=== PATIENT | male | born 1990 | race African-American/Black ===

== ENCOUNTER 2017-04-14 15:45 | Emergency (ER) | payer SELFPAY ==
[2017-04-14 17:08] LABS: ADD MAN DIFF? NO
[2017-04-14 17:23] LABS: ANION GAP 6 (6-14); BLOOD UREA NITROGEN 22 mg/dL (8-26); BUN/CREATININE RATIO 24 (6-20); CALCIUM 8.8 mg/dL (8.5-10.1); CARBON DIOXIDE 29 mmol/L (21-32); CHLORIDE 102 mmol/L (98-107); CREATININE 0.9 mg/dL (0.7-1.3); GFR 125.4; GLUCOSE 97 mg/dL (70-99); SODIUM 137 mmol/L (136-145)
[2017-04-14 17:30] LABS: ALBUMIN 3.5 g/dL (3.4-5.0); ALK PHOS 79 U/L (46-116); ALT (SGPT) 63 U/L (16-63); AST (SGOT) 155 U/L (15-37); LIPASE 103 U/L (73-393); TOTAL BILIRUBIN 0.2 mg/dL (0.2-1.0)
[2017-04-14 17:31] LABS: BASO % 1 % (0-3); EOS # 0.1 x10^3/uL (0.0-0.7); EOS % 2 % (0-3); HEMOGLOBIN 13.1 g/dL (13.0-17.5); LYMPH # 1.6 x10^3/uL (1.0-4.8); LYMPH % 26 % (24-48); MEAN CORPUSCULAR HEMOGLOBIN 33 pg (25-35); MEAN CORPUSCULAR HGB CONC 34 g/dL (31-37); MEAN CORPUSCULAR VOLUME 97 fL (79-100); MONO # 0.7 x10^3/uL (0.0-1.1); MONO % 12 % (0-9); NEUT # 3.8 x10^3uL (1.8-7.7); NEUT % 60 % (31-73); PLATELET COUNT 231 x10^3/uL (140-400); RED BLOOD COUNT 4.04 x10^6/uL (4.30-5.70); RED CELL DISTRIBUTION WIDTH 13.5 % (11.5-14.5); WHITE BLOOD COUNT 6.3 x10^3/uL (4.0-11.0)
[2017-04-14 17:48] LABS: INFLUENZA A PATIENT NEGATIVE (NEGATIVE); INFLUENZA B PATIENT NEGATIVE (NEGATIVE); OBC FLU VALID
[2017-04-14] MEDS: FAMOTIDINE 20 MG/2 ML VIAL IVP ×2 (17:50)
[2017-04-14] MEDS: ONDANSETRON PF 4 MG/2 ML VIAL. IV ×2 (17:50)
[2017-04-14] MEDS: IV NORMAL SALINE 1000ML BAG 1,000 ML IV ×2 (17:50)
[2017-04-14 19:50] LABS: BILIRUBIN,URINE NEGATIVE (NEG); CLARITY,URINE CLEAR; COLOR,URINE YELLOW; GLUCOSE,URINE NEGATIVE (NEG); NITRITE,URINE NEGATIVE (NEG); PH,URINE 6.5; PROTEIN,URINE NEGATIVE (NEG-TRACE); UROBILINOGEN,URINE 0.2 mg/dL (0.2 mg/dL)
[2017-04-14 20:02] LABS: BACTERIA,URINE 0 /HPF (0-FEW); RBC,URINE 0 /HPF (0-2); SQUAMOUS EPITHELIAL CELL,UR OCC /LPF; WBC,URINE 0 /HPF (0-4)
== END 2017-04-14 20:23 | disposition home or self-care (01) ==
LOC: ER 15:45
DX: R11.2 Nausea with vomiting, unspecified (principal); R10.13 Epigastric pain; R07.9 Chest pain, unspecified
CPT/HCPCS: 36415; 71045; 80053; 81001; 83690; 85025; 87804; 87804-59; 93005; 96361; 96374; 96375; 99285-25; J2405; J7030; S0028

== ENCOUNTER 2017-08-23 14:11 | Emergency (ER) | payer SELFPAY ==
[2017-08-23] MEDS: IV NORMAL SALINE 1000ML BAG 1,000 ML IV (14:45)
[2017-08-23] MEDS: IOHEXOL 300 MG/ML 100ML VIAL. IV (14:45)
[2017-08-23 14:50] LABS: ADD MAN DIFF? NO
[2017-08-23 14:57] LABS: BASO # 0.1 x10^3/uL (0.0-0.2); BASO % 1 % (0-3); EOS # 0.5 x10^3/uL (0.0-0.7); EOS % 9 % (0-3); HEMATOCRIT 42.4 % (39.0-53.0); HEMOGLOBIN 14.5 g/dL (13.0-17.5); LYMPH # 1.8 x10^3/uL (1.0-4.8); LYMPH % 31 % (24-48); MEAN CORPUSCULAR HEMOGLOBIN 33 pg (25-35); MEAN CORPUSCULAR HGB CONC 34 g/dL (31-37); MEAN CORPUSCULAR VOLUME 96 fL (79-100); MONO # 0.7 x10^3/uL (0.0-1.1); MONO % 13 % (0-9); NEUT # 2.7 x10^3uL (1.8-7.7); NEUT % 46 % (31-73); PLATELET COUNT 180 x10^3/uL (140-400); RED BLOOD COUNT 4.43 x10^6/uL (4.30-5.70); RED CELL DISTRIBUTION WIDTH 13.4 % (11.5-14.5); WHITE BLOOD COUNT 5.8 x10^3/uL (4.0-11.0)
[2017-08-23 15:00] LABS: BASE EXCESS ABG 0 mmol/L (-3-3); HCO3 ABG 23 mmol/L (21-28); PCO2 ABG 32 mmHg (35-46); PH ABG 7.47 (7.35-7.45); PO2 ABG 100 mmHg (85-108); SAT O2 ABG 98 % (92-99)
[2017-08-23] MEDS ORDERED: CONTRAST GIVEN. MC (15:00)
[2017-08-23 15:06] LABS: ANION GAP 11 (6-14); BLOOD UREA NITROGEN 20 mg/dL (8-26); BUN/CREATININE RATIO 18 (6-20); CALCIUM 9.2 mg/dL (8.5-10.1); CARBON DIOXIDE 26 mmol/L (21-32); CHLORIDE 101 mmol/L (98-107); CREATININE 1.1 mg/dL (0.7-1.3); GFR 98.7; GLUCOSE 77 mg/dL (70-99); POTASSIUM 3.6 mmol/L (3.5-5.1); SODIUM 138 mmol/L (136-145)
[2017-08-23 15:12] LABS: ALBUMIN 4.2 g/dL (3.4-5.0); ALBUMIN/GLOBULIN RATIO 1.1 (1.0-1.7); ALK PHOS 75 U/L (46-116); ALT (SGPT) 31 U/L (16-63); AST (SGOT) 28 U/L (15-37); CREATINE KINASE 308 U/L (39-308); TOTAL BILIRUBIN 1.5 mg/dL (0.2-1.0); TOTAL PROTEIN 7.9 g/dL (6.4-8.2)
[2017-08-23 15:13] LABS: ACETAMIN < 2.0 mcg/ml (10-30); ETHANOL < 10 mg/dL (0-10); SALIC 3.1 mg/dL (2.8-20.0)
[2017-08-23 15:42] LABS: BILIRUBIN,URINE MODERATE (NEG); CLARITY,URINE CLEAR; COLOR,URINE AMBER; GLUCOSE,URINE NEGATIVE (NEG); NITRITE,URINE NEGATIVE (NEG); PROTEIN,URINE 100 mg/dL (NEG-TRACE)
[2017-08-23 15:47] LABS: BARBITURATES NEG (NEG); BENZODIAZEPINES NEG (NEG); CANNABINOIDS POS (NEG); COCAINE POS (NEG); METHADONE NEG (NEG); OPIATES NEG (NEG); PHENCYCLIDINE NEG (NEG)
[2017-08-23 15:48] LABS: AMPHETAMINE/METHAMPHETAMINE POS (NEG); ETHANOL, URINE NEG (NEG)
[2017-08-23 15:58] LABS: BACTERIA,URINE 0 /HPF (0-FEW); HYALINE CASTS, URINE FEW /HPF; RBC,URINE 0 /HPF (0-2); SQUAMOUS EPITHELIAL CELL,UR FEW /LPF
== END 2017-08-23 16:13 | disposition home or self-care (01) ==
LOC: ER 14:11
DX: R10.9 Unspecified abdominal pain (principal); F41.9 Anxiety disorder, unspecified; E86.0 Dehydration
CPT/HCPCS: 36415; 36600; 74177; 80053; 80307; 80329; 81001; 82550; 82805; 85025; 87086; 96360; 99285-25; G0480; G6039; J7030; Q9967

== ENCOUNTER 2019-03-19 18:25 | Emergency (ER) | payer SELFPAY ==
[~2019-03-19] VITALS: Ht 167.6 cm; Wt 59.0 kg
[~2019-03-19 18:25] MED LIST: ONDA4TAB10 SL
[2019-03-19] MEDS ORDERED: IV NORMAL SALINE 1000ML BAG 1,000 ML IV SCH (18:39)
--- NOTE | 2019-03-19 18:44 | PHYS DOC ---
Past Medical History Past Medical History: No Pertinent History Past Surgical History: No Surgical History Alcohol Use: None Drug Use: None Adult General Chief Complaint Chief Complaint: NAUSEA/VOMITING/DIARRHA HPI HPI Patient is a 28 year old male who presented to ER today for evaluation of nausea, vomiting, diarrhea, abdominal pain started about 4 hours ago. he denies any fever. Patient said he ate some chicken this morning. he denies any chest pain, no trouble breathing, no suicidal ideation. All other ROS is negative unless otherwise noted in HPI Review of Systems Review of Systems See above Current Medications Current Medications Current Medications Medications (Trade) Dose Ordered Sig/Trista Start Time Stop Time Status Last Admin Dose Admin Ondansetron HCl (Zofran) 4 mg 1X ONCE 03/19/19 18:45 03/19/19 18:46 DC 03/19/19 18:45 4 MG Sodium Chloride 1,000 ml @ 1,000 mls/hr Q1H 03/19/19 18:39 03/19/19 19:38 DC 03/19/19 18:39 1,000 MLS/HR Allergies Allergies Allergies Coded Allergies Type Severity Reaction Last Updated Verified No Known Drug Allergies 04/14/17 No Physical Exam Physical Exam See above Constitutional: Well developed, well nourished, no acute distress, non-toxic appearance. [] HENT: Normocephalic, atraumatic, bilateral external ears normal, oropharynx moist, no oral exudates, nose normal. [] Eyes: PERRLA, EOMI, conjunctiva normal, no discharge. [] Neck: Normal range of motion, no tenderness, supple, no stridor. [] Cardiovascular:Heart rate regular rhythm, no murmur [] Lungs & Thorax: Bilateral breath sounds clear to auscultation [] Abdomen: Bowel sounds normal, soft, no tenderness, no masses, no pulsatile masses. [] Skin: Warm, dry, no erythema, no rash. [] Back: No tenderness, no CVA tenderness. [] Extremities: No tenderness, no cyanosis, no clubbing, ROM intact, no edema. [] Neurologic: Alert and oriented X 3, normal motor function, normal sensory function, no focal deficits noted. [] Psychologic: Affect normal, judgement normal, mood normal. [] Current Patient Data Vital Signs Vital Signs Date Time Temp Pulse Resp B/P (MAP) Pulse Ox O2 Delivery O2 Flow Rate FiO2 03/19/19 21:30 78 15 109/73 (85) 100 Room Air 03/19/19 18:40 98.1 98.1 Lab Values Laboratory Tests Test 03/19/19 19:06 White Blood Count 6.4 x10^3/uL (4.0-11.0) Red Blood Count 4.61 x10^6/uL (4.30-5.70) Hemoglobin 15.2 g/dL (13.0-17.5) Hematocrit 45.5 % (39.0-53.0) Mean Corpuscular Volume 99 fL (79-100) Mean Corpuscular Hemoglobin 33 pg (25-35) Mean Corpuscular Hemoglobin Concent 33 g/dL (31-37) Red Cell Distribution Width 13.9 % (11.5-14.5) Platelet Count 192 x10^3/uL (140-400) Neutrophils (%) (Auto) 64 % (31-73) Lymphocytes (%) (Auto) 21 % (24-48) L Monocytes (%) (Auto) 14 % (0-9) H Eosinophils (%) (Auto) 0 % (0-3) Basophils (%) (Auto) 1 % (0-3) Neutrophils # (Auto) 4.1 x10^3/uL (1.8-7.7) Lymphocytes # (Auto) 1.4 x10^3/uL (1.0-4.8) Monocytes # (Auto) 0.9 x10^3/uL (0.0-1.1) Eosinophils # (Auto) 0.0 x10^3/uL (0.0-0.7) Basophils # (Auto) 0.1 x10^3/uL (0.0-0.2) Urine Collection Type Unknown Urine Color Yellow Urine Clarity Clear Urine pH 7.0 Urine Specific Equality <=1.005 Urine Protein Negative mg/dL (NEG-TRACE) Urine Glucose (UA) Negative mg/dL (NEG) Urine Ketones (Stick) Negative mg/dL (NEG) Urine Blood Negative (NEG) Urine Nitrite Negative (NEG) Urine Bilirubin Negative (NEG) Urine Urobilinogen Dipstick 0.2 mg/dL (0.2 mg/dL) Urine Leukocyte Esterase Negative (NEG) Urine RBC 0 /HPF (0-2) Urine WBC 0 /HPF (0-4) Urine Squamous Epithelial Cells Occ /LPF Urine Bacteria 0 /HPF (0-FEW) Sodium Level 140 mmol/L (136-145) Potassium Level 4.1 mmol/L (3.5-5.1) Chloride Level 100 mmol/L (98-107) Carbon Dioxide Level 31 mmol/L (21-32) Anion Gap 9 (6-14) Blood Urea Nitrogen 9 mg/dL (8-26) Creatinine 1.0 mg/dL (0.7-1.3) Estimated GFR (Cockcroft-Gault) 109.3 BUN/Creatinine Ratio 9 (6-20) Glucose Level 91 mg/dL (70-99) Calcium Level 9.0 mg/dL (8.5-10.1) Total Bilirubin 0.4 mg/dL (0.2-1.0) Aspartate Amino Transferase (AST) 26 U/L (15-37) Alanine Aminotransferase (ALT) 29 U/L (16-63) Alkaline Phosphatase 129 U/L (46-116) H Total Protein 7.6 g/dL (6.4-8.2) Albumin 4.2 g/dL (3.4-5.0) Albumin/Globulin Ratio 1.2 (1.0-1.7) Lipase 51 U/L (73-393) L Urine Opiates Screen Neg (NEG) Urine Methadone Screen Neg (NEG) Urine Barbiturates Neg (NEG) Urine Phencyclidine Screen Neg (NEG) Urine Amphetamine/Methamphetamine Neg (NEG) Urine Benzodiazepines Screen Neg (NEG) Urine Cocaine Screen Pos (NEG) Urine Cannabinoids Screen Pos (NEG) Ethyl Alcohol Level < 10 mg/dL (0-10) Urine Ethyl Alcohol Neg (NEG) Laboratory Tests 03/19/19 19:06 Laboratory Tests 03/19/19 19:06 EKG EKG [] Radiology/Procedures Radiology/Procedures [] Course & Med Decision Making Course & Med Decision Making Pertinent Labs and Imaging studies reviewed. (See chart for details) [] Dragon Disclaimer Dragon Disclaimer This electronic medical record was generated, in whole or in part, using a voice recognition dictation system. Departure Departure Impression: Primary Impression: Substance abuse Additional Impression: Nausea & vomiting Disposition: 01 HOME, SELF-CARE Condition: STABLE Referrals: NO PCP (PCP) FOLLOW UP WITH YOUR DOCTOR NEEDED Patient Instructions: Substance Abuse-Brief Problem Qualifiers GIRMA FARAH DO Mar 19, 2019 18:44
[2019-03-19] MEDS ORDERED: ONDANSETRON PF 4 MG/2 ML VIAL. IV ONE (18:45)
[2019-03-19 19:25] LABS: BASO # 0.1 x10^3/uL (0.0-0.2); BASO % 1 % (0-3); EOS % 0 % (0-3); HEMATOCRIT 45.5 % (39.0-53.0); HEMOGLOBIN 15.2 g/dL (13.0-17.5); LYMPH # 1.4 x10^3/uL (1.0-4.8); LYMPH % 21 % (24-48); MEAN CORPUSCULAR HEMOGLOBIN 33 pg (25-35); MEAN CORPUSCULAR HGB CONC 33 g/dL (31-37); MEAN CORPUSCULAR VOLUME 99 fL (79-100); MONO # 0.9 x10^3/uL (0.0-1.1); MONO % 14 % (0-9); NEUT # 4.1 x10^3/uL (1.8-7.7); NEUT % 64 % (31-73); PLATELET COUNT 192 x10^3/uL (140-400); RED BLOOD COUNT 4.61 x10^6/uL (4.30-5.70); RED CELL DISTRIBUTION WIDTH 13.9 % (11.5-14.5); WHITE BLOOD COUNT 6.4 x10^3/uL (4.0-11.0)
[2019-03-19 19:29] LABS: AMPHETAMINE/METHAMPHETAMINE NEG (NEG); BARBITURATES NEG (NEG); BENZODIAZEPINES NEG (NEG); CANNABINOIDS POS (NEG); COCAINE POS (NEG); METHADONE NEG (NEG); OPIATES NEG (NEG); PHENCYCLIDINE NEG (NEG)
[2019-03-19 19:34] LABS: BILIRUBIN,URINE NEGATIVE (NEG); CLARITY,URINE CLEAR; COLOR,URINE YELLOW; NITRITE,URINE NEGATIVE (NEG); PROTEIN,URINE NEGATIVE (NEG-TRACE); UROBILINOGEN,URINE 0.2 mg/dL (0.2 mg/dL)
[2019-03-19 19:37] LABS: GFR 109.3; POTASSIUM 4.1 mmol/L (3.5-5.1)
[2019-03-19 19:40] LABS: ALBUMIN 4.2 g/dL (3.4-5.0); ALBUMIN/GLOBULIN RATIO 1.2 (1.0-1.7); TOTAL BILIRUBIN 0.4 mg/dL (0.2-1.0); TOTAL PROTEIN 7.6 g/dL (6.4-8.2)
[2019-03-19 19:58] LABS: BACTERIA,URINE 0 /HPF (0-FEW); RBC,URINE 0 /HPF (0-2); SQUAMOUS EPITHELIAL CELL,UR OCC /LPF; WBC,URINE 0 /HPF (0-4)
[2019-03-19 21:30] VITALS: BP 109/73
== END 2019-03-19 21:41 | disposition home or self-care (01) ==
LOC: ER 18:25
DX: R11.2 Nausea with vomiting, unspecified (principal); R19.7 Diarrhea, unspecified; R10.9 Unspecified abdominal pain
CPT/HCPCS: 36415; 80053; 80307; 81001; 83690; 85025; 96361; 96374; 99285; G0480; J2405; J7030

== ENCOUNTER 2019-09-14 17:24 | Emergency (ER) | payer SELFPAY | END 2019-09-14 18:03 | disposition left against medical advice (07) | LOC: ER 17:24 | DX: S01.511A Laceration without foreign body of lip, initial encounter (principal); Z53.21 Procedure and treatment not carried out due to patient leaving prior to being seen by health care provider ==